=== PATIENT | male | born 1955 | race Caucasian/White ===

== ENCOUNTER 2017-12-06 15:31 | Emergency (ER) | payer BC ==
[2017-12-06 16:26] VITALS: BP 201/103
--- NOTE | 2017-12-06 16:42 | UC ---
Knee Pain HPI - HPI Summary HPI Summary: 62 yo male was running up stairs sudden onset right medial knee pain now nikki no pain walking on level surface hurts to go up and down stairs no hx of knee problems - History of Current Complaint Chief Complaint: UCLowerExtremity Stated Complaint: RIGHT KNEE PAIN Time Seen by Provider: 12/06/17 16:08 Hx Obtained From: Patient Onset/Duration: Sudden Onset, Lasting Hours Severity Initially: Moderate Severity Currently: None Pain Intensity: 0 Pain Scale Used: 0-10 Numeric Character: Aching Aggravating Factor(s): Stairs Alleviating Factor(s): Rest Associated Signs And Symptoms: Positive: Negative Able to Bear Weight: Yes - Allergies/Home Medications Allergies/Adverse Reactions: Allergies Allergy/AdvReac Type Severity Reaction Status Date / Time No Known Allergies Allergy Verified 12/06/17 16:10 PMH/Surg Hx/FS Hx/Imm Hx Previously Healthy: Yes Cardiovascular History: Hypertension - no compliant with meds - Surgical History Surgical History: Yes Surgery Procedure, Year, and Place: Tonsils - Family History Known Family History: Positive: Hypertension - Social History Alcohol Use: Daily Alcohol Amount: "couple beers a night" Substance Use Type: None Smoking Status (MU): Heavy Every Day Tobacco Smoker Type: Cigarettes Amount Used/How Often: 1/2 PPD Length of Time of Smoking/Using Tobacco: "since I was 19" Have You Smoked in the Last Year: Yes Review of Systems Constitutional: Negative Skin: Negative Eyes: Negative ENT: Negative Respiratory: Negative Cardiovascular: Negative Gastrointestinal: Negative Genitourinary: Negative Motor: Negative Neurovascular: Negative Musculoskeletal: Arthralgia Neurological: Negative Psychological: Negative Is Patient Immunocompromised?: No All Other Systems Reviewed And Are Negative: Yes Physical Exam Triage Information Reviewed: Yes Appearance: Well-Appearing, No Pain Distress, Well-Nourished Vital Signs: Initial Vital Signs Temp 98.6 F 12/06/17 16:10 Pulse 90 12/06/17 16:10 Resp 16 12/06/17 16:10 BP 201/103 12/06/17 16:10 Pulse Ox 100 12/06/17 16:10 Vital Signs Reviewed: Yes Eyes: Positive: Conjunctiva Clear ENT: Positive: Hearing grossly normal, Nasal congestion, Nasal drainage. Negative: Trismus, Muffled voice Neck: Positive: Supple Respiratory: Positive: Lungs clear, Normal breath sounds, No respiratory distress, No accessory muscle use Cardiovascular: Positive: RRR, No Murmur, Pulses Normal Musculoskeletal: Positive: Strength Intact, ROM Intact, No Edema, Other: - stable joint Neurological: Positive: Alert Psychological Exam: Normal Skin Exam: Normal Diagnostics - Radiology No standard instances Xray Interpretation: No Acute Changes - DJD Radiology Interpretation Completed By: Radiologist Knee Pain Course/Dx - Course Course Of Treatment: offerred knee immobilizer- he declined - Differential Dx/Diagnosis Provider Diagnoses: left knee pain. ? medial meniscus tear Discharge - Sign-Out/Discharge Documenting (check all that apply): Patient Departure - Discharge Plan Condition: Stable Disposition: HOME Prescriptions: Lisinopril TAB* [Prinivil TAB 10 MG*] 10 mg PO DAILY #14 tab Patient Education Materials: Knee Pain (ED) Referrals: Jd Machuca MD [Primary Care Provider] - 2 Weeks Brendon Bermeo MD [Medical Doctor] - As Soon As Possible Additional Instructions: ice knee twice daily aleve 1-2 twice daily with food as needed restart your BP meds - Billing Disposition and Condition Condition: STABLE Disposition: Home
--- NOTE | 2017-12-06 17:02 | RAD ---
Indication: Medial RIGHT knee pain. Comparison: None. Technique: RIGHT knee: AP, tunnel, lateral, sunrise views. Report: Normal alignment. Minimal osteophytosis. Negative for significant joint space narrowing. Negative for joint effusion or fracture. Peripheral vascular calcifications. Unremarkable soft tissue contours. IMPRESSION: #. Mild osteoarthritis.
== END 2017-12-06 17:28 | disposition home or self-care (01) ==
LOC: UCCORT 15:31
DX: M25.561 Pain in right knee (principal); I10 Essential (primary) hypertension; F17.210 Nicotine dependence, cigarettes, uncomplicated
CPT/HCPCS: 99202; G0463